=== PATIENT | male | born 1995 | race Caucasian/White ===

== ENCOUNTER 2017-02-25 19:50 | Emergency (ER) | payer MEDICAID ==
[2017-02-25 22:04] LABS: microscopic required? YES; urine erythrocyte 2+ (NEGATIVE)
[2017-02-25 22:52] VITALS: BP 138/85
== END 2017-02-25 22:52 | disposition home or self-care (01) ==
LOC: ED 19:50
PROVIDERS: Emergency Medicine Emergency Medical Services
DX: N34.2 Other urethritis (principal)
CPT/HCPCS: 87491; 87591; J0696